=== PATIENT | female | born 1965 | race Two or more races ===

== ENCOUNTER 2020-03-07 23:43 | Emergency (ER) | payer SELFPAY ==
[~2020-03-07] VITALS: Ht 157.5 cm; Wt 56.8 kg
[2020-03-08 00:28] LABS: BASO % 1 % (0-3); EOS # 0.1 x10^3/uL (0.0-0.7); EOS % 1 % (0-3); HEMATOCRIT 35.4 % (36.0-47.0); HEMOGLOBIN 11.9 g/dL (12.0-15.5); LYMPH # 2.4 x10^3/uL (1.0-4.8); LYMPH % 31 % (24-48); MEAN CORPUSCULAR HEMOGLOBIN 28 pg (25-35); MEAN CORPUSCULAR HGB CONC 34 g/dL (31-37); MEAN CORPUSCULAR VOLUME 84 fL (79-100); MONO # 0.7 x10^3/uL (0.0-1.1); MONO % 9 % (0-9); NEUT # 4.4 x10^3/uL (1.8-7.7); NEUT % 58 % (31-73); PLATELET COUNT 317 x10^3/uL (140-400); RED CELL DISTRIBUTION WIDTH 14.9 % (11.5-14.5); WHITE BLOOD COUNT 7.7 x10^3/uL (4.0-11.0)
[2020-03-08 00:35] LABS: CALCIUM 8.7 mg/dL (8.5-10.1); CREATININE 0.8 mg/dL (0.6-1.0); GFR 74.2; POTASSIUM 3.6 mmol/L (3.5-5.1)
[2020-03-08 00:37] LABS: PROTHROMBIN TIME PATIENT 12.6 SEC (11.7-14.0)
[2020-03-08 00:41] LABS: ALBUMIN/GLOBULIN RATIO 0.9 (1.0-1.7); TOTAL BILIRUBIN 0.2 mg/dL (0.2-1.0); TOTAL PROTEIN 6.5 g/dL (6.4-8.2)
[2020-03-08 00:49] LABS: CREATINE KINASE 70 U/L (26-192)
[2020-03-08 01:05] LABS: BILIRUBIN,URINE NEGATIVE (NEG); CLARITY,URINE CLEAR; COLOR,URINE YELLOW; NITRITE,URINE NEGATIVE (NEG); PH,URINE 5.5 (<5.0-8.0); PROTEIN,URINE 30 mg/dL (NEG-TRACE); UROBILINOGEN,URINE 0.2 mg/dL (0.2 mg/dL)
[2020-03-08 01:11] LABS: AMPHETAMINE/METHAMPHETAMINE NEG (NEG); BARBITURATES NEG (NEG); BENZODIAZEPINES NEG (NEG); CANNABINOIDS NEG (NEG); COCAINE NEG (NEG); METHADONE NEG (NEG); OPIATES NEG (NEG); PHENCYCLIDINE NEG (NEG)
[2020-03-08 01:13] LABS: SQUAMOUS EPITHELIAL CELL,UR FEW /LPF
[2020-03-08 01:14] LABS: AMORPHOUS SEDIMENT,UR PRESENT /HPF; BACTERIA,URINE MODERATE /HPF (0-FEW); RBC,URINE 0 /HPF (0-2)
[2020-03-08] MEDS ORDERED: IV NORMAL SALINE 1000ML BAG 1,000 ML IV ONE (01:30)
[2020-03-08] MEDS ORDERED: CONTRAST GIVEN. MC PRN (01:45)
[2020-03-08] MEDS ORDERED: IOHEXOL 300 MG/ML 100ML VIAL. IV ONE (02:00)
--- NOTE | 2020-03-08 02:16 | RAD ---
INDICATION: Reason: abdominal pain, rectal bleeding, OMNI 300, 75 ML IV / Spl. Instructions: / History: COMPARISON: None. TECHNIQUE: Axial CT images obtained through the abdomen and pelvis with contrast. One or more of the following individualized dose reduction techniques were utilized for this examination: 1. Automated exposure control; 2. Adjustment of the mA and/or kV according to patient size; 3. Use of iterative reconstruction technique. FINDINGS: 4 mm nodule left lung base. Additional sub-4 mm nodule left lung base. Abdominal aorta is nonaneurysmal. Mild plaque. No intrahepatic bile duct dilation. There is some high density material within the gallbladder. No peripancreatic fluid collection. Spleen unremarkable. No left-sided hydronephrosis. Urinary bladder is partially distended. Mild prominence right extrarenal pelvis. Air-filled distention of the rectal region. Colonic diverticulosis. No periappendiceal inflammatory changes. Degenerative changes of the spine. There is some questionable mild haziness of the fat adjacent to a sigmoid diverticula. Enhancing region along the uterus could be from fibroids. Pars defects L5. IMPRESSION: * Colonic diverticulosis. There is a questionable mild region of haziness adjacent to one of the sigmoid diverticula. Mild diverticulitis could have this appearance. There is some air filled dilatation of the rectal region. * High-density material within the gallbladder which could be from sludge or stones. * Small lung nodules at the left lung base. Fleischner Society recommendations for solitary solid lung nodule follow up.: In a low risk patient: <6mm - No follow up required. 6-8mm - 6-[address], then CT at 18-24 months. >8mm - CT at 3 months, PET/CT or tissue sampling. In a high risk patient (history of smoking or other known risk factors): <6mm - Follow up CT at 12 months. 6-8mm - 6-[address], then CT at 18-24 months. >8mm - CT at 3 months, PET/CT or tissue sampling. Fleischner Society recommendations for multiple solid lung nodule follow up.: In a low risk patient: <6mm - No follow up required. 6-8mm - 3-[address], then CT at 18-24 months. >8mm - CT at 3-6 months, then at 18-24 months. PET/CT or tissue sampling based on most suspicious nodule. In a high risk patient (history of smoking or other known risk factors): <6mm - Follow up CT at 12 months. 6-8mm - 3-[address], then CT at 18-24 months. >8mm - CT at 3-6 months, PET/CT or tissue sampling option based on most suspicious nodule. Electronically signed by: Alonzo Salcido MD (03/08/2020 2:13 AM) [id number]
[2020-03-08] MEDS ORDERED: HYDR25SU18 RC (02:33)
[2020-03-08] MEDS ORDERED: CIPR500T94 PO (02:33)
[2020-03-08] MEDS ORDERED: METR500T PO (02:33)
--- NOTE | 2020-03-08 02:33 | PHYS DOC ---
Past Medical History Past Medical History: Migraines, Other Past Surgical History: Other Smoking Status: Never Smoker Alcohol Use: Rarely Drug Use: None General Adult EDM: Chief Complaint: RECTAL BLEED HPI: HPI: 54-year-old female presents with report of rectal bleeding and lower abdominal pain that has been ongoing for the past few days. Spouse reports concerned that patient became very dizzy and seemed to fall. Patient denies any loss of consciousness. Denies fever or chills. Denies known sick contacts. Denies use of blood thinners. Patient reports she has not had a colonoscopy. Review of Systems: Review of Systems: Constitutional: Denies fever or chills Eyes: Denies redness or eye pain HENT: Denies nasal congestion or sore throat Respiratory: Denies cough or shortness of breath Cardiovascular: Denies chest pain or palpitations GI: Reports lower abdominal pain and rectal bleeding; denies nausea or vomiting : Denies dysuria or hematuria Musculoskeletal: Denies back pain or joint pain Integument: Denies rash or skin lesions Neurologic: Denies headache, focal weakness or sensory changes; reports dizziness Complete systems were reviewed and found to be within normal limits, except as documented in this note. Current Medications: Current Medications Medications (Trade) Dose Ordered Sig/Wilfrido Start Time Stop Time Status Last Admin Dose Admin Info (CONTRAST GIVEN -- Rx MONITORING) 1 each PRN DAILY PRN 03/08/20 01:45 03/10/20 01:44 Iohexol (Omnipaque 300 Mg/ml) 75 ml 1X ONCE 03/08/20 02:00 03/08/20 02:01 DC 03/08/20 01:57 75 ML Sodium Chloride 1,000 ml @ 1,000 mls/hr 1X ONCE 03/08/20 01:30 03/08/20 02:29 DC 03/08/20 01:23 1,000 MLS/HR Allergies: Allergies: Allergies Coded Allergies Type Severity Reaction Last Updated Verified No Known Drug Allergies 03/08/20 No Physical Exam: PE: Constitutional: Well developed, well nourished, no acute distress, non-toxic appearance HENT: Normocephalic, atraumatic Eyes: PERRL, EOMI, conjunctiva normal, no discharge Neck: Normal range of motion, supple Lungs & Thorax: No respiratory distress, equal chest rise and fall Abdomen: Soft, left lower quadrant tenderness, no guarding/rebound tenderness/distention Rectal exam: Bilingual Nanny RN, no external hemorrhoids noted, digital rectal exam performed with notation of maroon-colored blood on fingertip, no internal hemorrhoid appreciated Skin: Warm, dry, no erythema, no rash Extremities: No tenderness, ROM intact, no edema Neurologic: Alert and oriented X 3, no focal deficits noted Psychologic: Affect normal, judgment normal Current Patient Data: Labs: Laboratory Tests Test 03/08/20 00:18 03/08/20 00:58 White Blood Count 7.7 x10^3/uL (4.0-11.0) Red Blood Count 4.20 x10^6/uL (3.50-5.40) Hemoglobin 11.9 g/dL (12.0-15.5) L Hematocrit 35.4 % (36.0-47.0) L Mean Corpuscular Volume 84 fL (79-100) Mean Corpuscular Hemoglobin 28 pg (25-35) Mean Corpuscular Hemoglobin Concent 34 g/dL (31-37) Red Cell Distribution Width 14.9 % (11.5-14.5) H Platelet Count 317 x10^3/uL (140-400) Neutrophils (%) (Auto) 58 % (31-73) Lymphocytes (%) (Auto) 31 % (24-48) Monocytes (%) (Auto) 9 % (0-9) Eosinophils (%) (Auto) 1 % (0-3) Basophils (%) (Auto) 1 % (0-3) Neutrophils # (Auto) 4.4 x10^3/uL (1.8-7.7) Lymphocytes # (Auto) 2.4 x10^3/uL (1.0-4.8) Monocytes # (Auto) 0.7 x10^3/uL (0.0-1.1) Eosinophils # (Auto) 0.1 x10^3/uL (0.0-0.7) Basophils # (Auto) 0.0 x10^3/uL (0.0-0.2) Prothrombin Time 12.6 SEC (11.7-14.0) Prothrombin Time INR 1.0 (0.8-1.1) Activated Partial Thromboplast Time 29 SEC (24-38) Sodium Level 142 mmol/L (136-145) Potassium Level 3.6 mmol/L (3.5-5.1) Chloride Level 106 mmol/L (98-107) Carbon Dioxide Level 28 mmol/L (21-32) Anion Gap 8 (6-14) Blood Urea Nitrogen 13 mg/dL (7-20) Creatinine 0.8 mg/dL (0.6-1.0) Estimated GFR (Cockcroft-Gault) 74.2 BUN/Creatinine Ratio 16 (6-20) Glucose Level 110 mg/dL (70-99) H Lactic Acid Level 1.6 mmol/L (0.4-2.0) Calcium Level 8.7 mg/dL (8.5-10.1) Total Bilirubin 0.2 mg/dL (0.2-1.0) Aspartate Amino Transferase (AST) 33 U/L (15-37) Alanine Aminotransferase (ALT) 43 U/L (14-59) Alkaline Phosphatase 148 U/L (46-116) H Creatine Kinase 70 U/L (26-192) Creatine Kinase MB (Mass) 0.8 ng/mL (0.0-3.6) Creatine Kinase MB Relative Index % (0-4) Troponin I Quantitative < 0.017 ng/mL (0.000-0.055) Total Protein 6.5 g/dL (6.4-8.2) Albumin 3.0 g/dL (3.4-5.0) L Albumin/Globulin Ratio 0.9 (1.0-1.7) L Lipase 121 U/L (73-393) Urine Collection Type Unknown Urine Color Yellow Urine Clarity Clear Urine pH 5.5 (<5.0-8.0) Urine Specific [place] 1.025 (1.000-1.030) Urine Protein 30 mg/dL (NEG-TRACE) Urine Glucose (UA) Negative mg/dL (NEG) Urine Ketones (Stick) Negative mg/dL (NEG) Urine Blood Negative (NEG) Urine Nitrite Negative (NEG) Urine Bilirubin Negative (NEG) Urine Urobilinogen Dipstick 0.2 mg/dL (0.2 mg/dL) Urine Leukocyte Esterase Trace (NEG) Urine RBC 0 /HPF (0-2) Urine WBC 1-4 /HPF (0-4) Urine Squamous Epithelial Cells Few /LPF Urine Amorphous Sediment Present /HPF Urine Bacteria Moderate /HPF (0-FEW) Urine Mucus Mod /LPF Urine Opiates Screen Neg (NEG) Urine Methadone Screen Neg (NEG) Urine Barbiturates Neg (NEG) Urine Phencyclidine Screen Neg (NEG) Urine Amphetamine/Methamphetamine Neg (NEG) Urine Benzodiazepines Screen Neg (NEG) Urine Cocaine Screen Neg (NEG) Urine Cannabinoids Screen Neg (NEG) Urine Ethyl Alcohol Neg (NEG) Laboratory Tests 03/08/20 00:18 Laboratory Tests 03/08/20 00:18 Vital Signs: Vital Signs Date Time Temp Pulse Resp B/P (MAP) Pulse Ox O2 Delivery O2 Flow Rate FiO2 03/08/20 00:05 97.7 68 16 112/62 (79) 100 Room Air 97.7 EKG: EKG: @0048 NSR at 61bpm, NO ST elevation, QRS 78ms, QT/QTc 378/386ms Radiology/Procedures: Radiology/Procedures: PROCEDURE: CT ABD PELV W/ IV CONTRST ONLY INDICATION: Reason: abdominal pain, rectal bleeding, OMNI 300, 75 ML IV / Spl. Instructions: / History: COMPARISON: None. TECHNIQUE: Axial CT images obtained through the abdomen and pelvis with contrast. One or more of the following individualized dose reduction techniques were utilized for this examination: 1. Automated exposure control; 2. Adjustment of the mA and/or kV according to patient size; 3. Use of iterative reconstruction technique. FINDINGS: 4 mm nodule left lung base. Additional sub-4 mm nodule left lung base. Abdominal aorta is nonaneurysmal. Mild plaque. No intrahepatic bile duct dilation. There is some high density material within the gallbladder. No peripancreatic fluid collection. Spleen unremarkable. No left-sided hydronephrosis. Urinary bladder is partially distended. Mild prominence right extrarenal pelvis. Air-filled distention of the rectal region. Colonic diverticulosis. No periappendiceal inflammatory changes. Degenerative changes of the spine. There is some questionable mild haziness of the fat adjacent to a sigmoid diverticula. Enhancing region along the uterus could be from fibroids. Pars defects L5. IMPRESSION: * Colonic diverticulosis. There is a questionable mild region of haziness adjacent to one of the sigmoid diverticula. Mild diverticulitis could have this appearance. There is some air filled dilatation of the rectal region. * High-density material within the gallbladder which could be from sludge or stones. * Small lung nodules at the left lung base. Fleischner Society recommendations for solitary solid lung nodule follow up.: In a low risk patient: <6mm - No follow up required. 6-8mm - 6-[address], then CT at 18-24 months. >8mm - CT at 3 months, PET/CT or tissue sampling. In a high risk patient (history of smoking or other known risk factors): <6mm - Follow up CT at 12 months. 6-8mm - 6-[address], then CT at 18-24 months. >8mm - CT at 3 months, PET/CT or tissue sampling. Fleischner Society recommendations for multiple solid lung nodule follow up.: In a low risk patient: <6mm - No follow up required. 6-8mm - 3-[address], then CT at 18-24 months. >8mm - CT at 3-6 months, then at 18-24 months. PET/CT or tissue sampling based on most suspicious nodule. In a high risk patient (history of smoking or other known risk factors): <6mm - Follow up CT at 12 months. 6-8mm - 3-[address], then CT at 18-24 months. >8mm - CT at 3-6 months, PET/CT or tissue sampling option based on most suspicious nodule. Electronically signed by: Alonzo Salcido MD (03/08/2020 2:13 AM) [id number] Course & Med Decision Making: Course & Med Decision Making Pertinent Labs and Imaging studies reviewed. (See chart for details) Patient presents with her spouse with report of dizziness, rectal bleeding, and left lower quadrant abdominal discomfort. Patient denies loss of consciousness. Labs obtained and posted to chart. H&H stable. Troponin within normal limits. EKG stable. Orthostatic vital signs negative. CT abdomen/pelvis with findings consistent for early diverticulitis. Empiric antibiotic initiated. Cannot fully exclude internal hemorrhoid. Will prescribe Anusol suppository and provide patient with GI referral. Patient stable for discharge with outpatient follow-up with PCP/GI. GI referral provided. Discussed findings and plan with patient and family, who acknowledge understanding and agreement. Jaziel Disclaimer: Jaziel Disclaimer: This electronic medical record was generated, in whole or in part, using a voice recognition dictation system. Departure Departure Impression: Primary Impression: Rectal bleeding Additional Impressions: Dizziness Diverticulitis Incidental pulmonary nodule, > 3mm and < 8mm Disposition: 01 HOME, SELF-CARE Condition: STABLE Referrals: UNKNOWN PCP NAME (PCP) BETSY GAVIRIA MD Patient Instructions: Diverticulitis, [id number], Dizziness, [id number], Pulmonary Nodule, [id number], Rectal Bleeding, [id number] Scripts Metronidazole (FLAGYL) 500 Mg Tablet 500 MG PO TID for 7 Days, #21 TAB Prov: DOROTA DELANEY DO 03/08/20 Ciprofloxacin Hcl (CIPRO) 500 Mg Tablet 1 TAB PO BID for 7 Days, #14 TAB Prov: DOROTA DELANEY DO 03/08/20 Hydrocortisone Acetate (ANUSOL-HC) 25 Mg Supp.rect 1 SUPP RC BID for 7 Days, #14 SUPP 0 Refills Prov: DOROTA DELANEY DO 03/08/20 Justicifation of Admission Dx: Justifications for Admission: Justification of Admission Dx: N/A NIHSS Stroke Scale NIH Stroke Scale: NIH Stroke Scale Response (Comments) Value Level of Consciousness: 0 Alert/Responsive 0 LOC Questions: 0 Answers both correctly 0 LOC Commands: 0 Performs both tasks 0 Best Gaze: 0 Normal 0 Visual: 0 No visual loss 0 Facial Palsy: 0 Normal, symmetrical 0 Motor - Left Arm 0 No drift 0 Motor - Right Arm 0 No drift 0 Motor - Left Leg 0 No drift 0 Motor: Right Leg 0 No drift 0 Limb Ataxia: 0 Absent 0 Sensory: 0 No loss 0 Best Language: 0 Normal 0 Dysathria: 0 Normal 0 Extinction and Inattention: 0 Normal 0 Total 0 DOROTA DELANEY DO Mar 08, 2020 02:33
[2020-03-08] MEDS ORDERED: metroNIDAZOLE 500 MG TABLET PO ONE (03:00)
[2020-03-08] MEDS ORDERED: CIPROFLOXACIN HCL 250 MG TABLET. PO ONE (03:00)
[2020-03-08 03:02] VITALS: BP 112/55
--- NOTE | 2020-03-09 08:03 | EKG ---
[facility] [address] [place] [address] Test Date: 2020-03-08 Test Time: 00:48:20 Pat Name: GONZALO LOCKEDepartment: Room: Gender: F [employer]: : 1965 Requested By: DOROTA DELANEY Order Number: [id number] Reading MD: Measurements Intervals [place] Rate: 61 P: 37 MD: 156 QRS: 54 QRSD: 78 T: 29 QT: 378 QTc: 386 Interpretive Statements SINUS RHYTHM OTHERWISE NORMAL ECG RI6.02 No previous ECG available for comparison
== END 2020-03-08 03:08 | disposition home or self-care (01) ==
LOC: ER 23:43
DX: K62.5 Hemorrhage of anus and rectum (principal); K57.92 Diverticulitis of intestine, part unspecified, without perforation or abscess without bleeding; R42 Dizziness and giddiness; R10.30 Lower abdominal pain, unspecified; R91.1 Solitary pulmonary nodule; G43.909 Migraine, unspecified, not intractable, without status migrainosus; Z98.890 Other specified postprocedural states
CPT/HCPCS: 36415; 74177; 80053; 80307; 81001; 82553; 83605; 83690; 84484; 85025; 85610; 85730; 87086; 96360; 96361; 99285; J7030; Q9967; 93005